=== PATIENT | male | born 1980 | race Caucasian/White ===

== ENCOUNTER 2024-11-21 13:21 | Emergency (ER) | payer MEDICAID ==
[~2024-11-21] VITALS: Ht 172.7 cm; Wt 100.0 kg
[2024-11-21 13:30] VITALS: O2SAT 100
[2024-11-21] MEDS ORDERED: LIDO-53 TP (16:20)
[2024-11-21] MEDS ORDERED: NAPR-1176 MT (16:20)
[2024-11-21] MEDS: KETOROLAC 15MG/ML VIAL IM ONE (16:41)
[2024-11-21] MEDS: LIDOCAINE 5% PATCH TOP SCH (16:41)
[2024-11-21 16:50] VITALS: BP 120/80; PULSE 82; RESP 16; TEMP 36.9; O2SAT 100
== END 2024-11-21 17:01 | disposition home or self-care (01) ==
LOC: ER 13:21
DX: G89.29 Other chronic pain (principal); M54.9 Dorsalgia, unspecified; Z79.1 Long term (current) use of non-steroidal anti-inflammatories (NSAID)
CPT/HCPCS: 99283; 96372; J1885